=== PATIENT | male | born 2000 | race African-American/Black ===

== ENCOUNTER 2023-12-07 11:38 | Outpatient (AMB) | payer MEDICAID, SELFPAY ==
--- NOTE | 2023-12-07 11:45 | MHC.OFFVIS ---
Intake Intake Visit Reasons: vasectomy consult Intake Note: New Patient presents for initial visit for Vasectomy Consult Urology Medications: none Blood Thinner: none Accompanied by: Self / Same As Patient Allergies No Known Allergies Allergy (Unverified 12/07/23 20:26) Medication List - Last Reconciled 12/07/23 by MATTHEW Farrell No Known Home Meds HPI HPI Comments History of Present Illness Details Mike is a pleasant a 23 year old male patient of Dr. Sanchez. He has a past medical history of insomnia, asthma, PTSD, and depression. He presents to the office today for - vasectomy evaluation Vasectomy evaluation The patient presents for vasectomy consultation.? He is currently single; however has a girlfriend. He has fathered -?2 children, with 1 single partner The youngest child is - 3 years old. His partner is aware and permissive for a vasectomy. 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 The vasectomy may be complicated due to a history of no complicating issues. Patient education has been provided via [employer] video, via printed information, risks of failure, recovery time, bruising and potential pain syndrome have been stressed. Discussion today focused on the presence of vasectomy and the risks, benefits and alternatives that are available. Vasectomy as intended as a permanent form of control. Printed information and literature was provided to the patient. Overall there is a one in 2500 failure rate. This can occur at any time after vasectomy. Risks were discussed highlighting hematoma, spermatocele, epididymal congestion, development of sperm antibodies, and development of chronic pain estimated between 1-5%. The procedure was reviewed in detail. Anatomical diagrams of the male genitalia were used to explain the location of the vas deferens. The vas deferens will be transected, the proximal end will be cauterized, a metal clip would be applied to separate the 2 vas deferens ends. It was explained the procedure will be done in the office and takes approximately 10-15 minutes. Less common problems that arise with vasectomy include hematoma, bleeding, allergic reaction to anesthetic, epididymal infection, epididymal congestion, scrotal discomfort, spermatic leak, spermatic granuloma and the possibility of antisperm antibodies. He understands these risks and wishes to proceed. Consent was signed at the office today. He also understands that it takes 12 weeks for sperm to fully clear the system. He will need to provide a semen sample at 12 weeks and if this is not clear a 2nd sample at 16 weeks. Medical clearance to stop using protection will only be provided if he satisfies published criteria for sperm clearance. [facility] Medical History Insomnia Asthma PTSD (post-traumatic stress disorder) Depression Surgical History (Updated 12/07/23 @ 12:13 by Jaylan Narayan) History of appendectomy Review of Systems Const All systems reviewed & are unremarkable except as noted in HPI and below Physical Exam Const General: cooperative, comfortable, no acute distress, well developed, alert and awake Orientation/consciousness: patient oriented x3 HEENT Head: Yes normal to inspection, Yes normocephalic and Yes atraumatic Ears: hearing grossly normal bilaterally Eyes General: appearance normal, both eyes and all related structures Neck Neck: Yes normal visual inspection and Yes trachea midline Chest Chest palpation & inspection: normal inspection of the chest Resp Effort & Inspection: normal respiratory effort and able to speak in complete sentences Cardio Rate: regular rate GI Inspection: Yes normal to inspection General: Yes no CVA tenderness Male General Exam: Yes normal external exam Penis: normal penis Meatus: meatus normal Scrotum: scrotum normal Testes: Testes normal Back/Spine/Pelvis Back: no CVA tenderness Skin General skin exam: no rashes or lesions noted Neuro General: patient oriented x3 Extrem General: Yes normal to inspection Psych Appearance: grossly normal and well kempt Mental Status: mental status grossly normal Speech and movement: Normal speech and movement present and Clear speech present Affect: normal affect Attitude: cooperative Thought process: Normal thought process present Thought content: Normal thought content present Insight: Fair insight present (Psych) Judgement: Fair judgement present (Psych) Results AMB Urinalysis, Automated UA Leukoctes 0 Denys/uL Last Edit by Jaylan Narayan on 12/07/23 12:14 UA Nitrite Negative Last Edit by Jaylan Narayan on 12/07/23 12:14 UA Urobilinogen 0.2 mg/dL Last Edit by Jaylan Narayan on 12/07/23 12:14 UA Protein 15 mg/dL Last Edit by Jaylan Narayan on 12/07/23 12:14 UA pH 8.5 Last Edit by Jyalan Narayan on 12/07/23 12:14 UA Blood 0 Jatin/uL Last Edit by Jaylan Narayan on 12/07/23 12:14 UA Specific Glover 1.010 Last Edit by Jaylan Lopezolman on 12/07/23 12:14 UA Ketone Negative Last Edit by Gamalielantonio Jessicaolman on 12/07/23 12:14 UA Bilirubin 0 mg/dL Last Edit by Jaylan Lopezolman on 12/07/23 12:14 UA Glucose 0 mg/dL Last Edit by Jaylan Lopezolman on 12/07/23 12:14 Results Reviewed Results Reviewed: Laboratory Last Values Urine pH (Auto) 8.5 12/07/23 12:13 Specific Glover (Auto) 1.010 12/07/23 12:13 Urine Protein (Auto) 15 mg/dL 12/07/23 12:13 Glucose (UA)(Auto) 0 mg/dL 12/07/23 12:13 Urine Ketones (Auto) Negative 12/07/23 12:13 Urine Blood (Auto) 0 Jatin/uL 12/07/23 12:13 Urine Nitrite (Auto) Negative 12/07/23 12:13 Urine Bilirubin (Auto) 0 mg/dL 12/07/23 12:13 Urine Urobilinogen (Auto) 0.2 mg/dL 12/07/23 12:13 Leukocyte Esterase (Auto) 0 Denys/uL 12/07/23 12:13 Assessment & Plan Assessment & Plan (1) Anxiety about health: Code(s): R45.89 - Other symptoms and signs involving emotional state (2) Vasectomy evaluation: Code(s): Z30.09 - Encounter for other general counseling and advice on contraception Plan Discussed at length vasectomy; as noted above. All questions were answered. Discussed prescriptions provided and specific instructions. Schedule for vasectomy as discussed. Follow-up status post vasectomy per Dr. Severino's order; or sooner with any issues, concerns, and or questions. Orders: Orders AMB Urinalysis Automated Today Z13.9 - Encounter for screening, unspecified Medications: New diazepam (Valium) take one tab when arrive for procedure 2 mg PO DAILY 2 tabs 0RF anxiety R45.89 - Other symptoms and signs involving emotional state acetaminophen-codeine 300-30 mg 1 tab PO Q8H 3 days 9 tabs 0RF R45.89 - Other symptoms and signs involving emotional state Patient Instructions: The patient had an opportunity to ask questions regarding the treatment plan. All questions were answered. Physical exam, labs, and imaging were discussed and reviewed in detail. As well as risks, benefits, and discussion of treatment choices. No major barriers to understanding were identified. The patient expressed understanding and agreement with the above treatment plan. The patient was made aware they should contact our office by phone for worsening of their current condition, the appearance of new symptoms, or with any questions or concerns. Compliance is encouraged with any medications and follow up testing that is ordered. It is a privilege to be allowed the opportunity to participate in? your urological care.? Again, if you have any questions or concerns If you have any questions or concerns please do not hesitate to contact me. The office is [phone]. This note is constructed using voice recognition software. While every effort has been made to ensure accuracy clamshell engineer errors may have been included. Yours sincerely, MATTHEW Farrell Coding Level of Care Code New Pt Level 4 (38346) Diagnoses Anxiety about health R45.89 Vasectomy evaluation Z30.09
== END 2023-12-07 12:30 | disposition home or self-care (01) ==
PROVIDERS: PCP Internal Medicine; Visit Provider Nurse Practitioner Family
DX: R45.89 Other symptoms and signs involving emotional state (principal); Z30.09 Encounter for other general counseling and advice on contraception
CPT/HCPCS: 99204

== ENCOUNTER → 2023-12-07 11:38 | Outpatient (BNVA) | payer MEDICAID, SELFPAY | PROVIDERS: PCP Internal Medicine; Visit Provider Nurse Practitioner Family | DX: Z30.09 Encounter for other general counseling and advice on contraception (principal); R45.89 Other symptoms and signs involving emotional state | CPT/HCPCS: 81003; 99212 ==